=== PATIENT | female | born 1995 | race Two or more races ===

== ENCOUNTER → 2024-12-26 | Emergency (ER) | payer OTHER ==
[~2024-12-26] VITALS: Ht 165.1 cm; Wt 61.2 kg
== END | disposition left against medical advice (07) ==
LOC: ER 12:17
DX: Z53.21 Procedure and treatment not carried out due to patient leaving prior to being seen by health care provider (principal)

== ENCOUNTER 2025-03-06 11:13 | Outpatient (CLI) | payer OTHER | END 2025-03-06 11:21 | disposition home or self-care (01) | LOC: TOM 11:13 | PROVIDERS: ATTEND Internal Medicine Gastroenterology | DX: Z12.11 Encounter for screening for malignant neoplasm of colon (principal) ==